=== PATIENT | male | born 1965 | race Caucasian/White ===

== ENCOUNTER 2017-04-27 17:09 | Emergency (ER) | payer BC ==
[2015-10-10 09:41] VITALS: BMI 29.6
[~2017-04-27 17:09] MED LIST: ATIVAN0.5 MG PO; CHERATUSSIN AC473 ML; HYDROCODONE-APA1 TAB PO; MOBIC7.5 MG PO; RESTORIL22.5 MG
[2017-04-27 17:39] LABS: BASOPHILS 0.2 % (0-2); EOSINOPHILS 0 % (0-7); HEMATOCRIT 46.8 % (42.0-54.0); HEMOGLOBIN 15.8 g/dL (13.5-17.5); IMMATURE GRANULOCYTES 0.5 % (0-5); LYMPHOCYTES 5.8 % (15-50); MCH 33.5 pg (26.0-34.0); MCHC 33.8 g/dL (31.0-37.0); MCV 99.4 fL (80.0-100.0); MEAN PLATELET VOLUME 10.4 fL (7.4-10.4); MONOCYTES 6.7 % (2-11); NEUTROPHILS 86.8 % (40-80); PLATELET COUNT 289 10x3/uL (130-400); RBC 4.71 10x6/uL (4.20-6.10); RDW 12.5 % (11.5-14.5); WBC 12.7 10x3/uL (4.8-10.8)
[2017-04-27 17:51] LABS: ALBUMIN 4.2 g/dL (3.4-5.0); ANION GAP 16.5 mmol/L (8-16); BILIRUBIN - TOTAL 0.8 mg/dL (0.2-1.3); CALCIUM 9.7 mg/dL (8.5-10.1); CARBON DIOXIDE 27.2 mmol/L (21.0-32.0); CREATININE - SERUM 1.3 mg/dL (0.6-1.3); POTASSIUM - SERUM 3.7 mmol/L (3.5-5.1); PROTEIN - SERUM 7.9 g/dL (6.4-8.2)
[2017-04-27 18:13] LABS: COLOR DK YELLOW (YELLOW)
[2017-04-27 18:14] LABS: APPEARANCE CLEAR (CLEAR); BILIRUBIN NEGATIVE (NEGATIVE); GLUCOSE NEGATIVE (NEGATIVE); KETONE LARGE mg/dL (NEGATIVE); NITRITE NEGATIVE (NEGATIVE); PROTEIN TRACE mg/dL (NEGATIVE); SPECIFIC GRAVITY 1.005 (1.005-1.020); UROBILINOGEN NORMAL (NORMAL)
[2017-04-27 20:06] LABS: AMYLASE - SERUM 46 U/L (25-115); LIPASE 143 U/L (73-393)
== END 2017-04-27 20:43 | disposition home or self-care (01) ==
LOC: D.ER 17:09
PROVIDERS: Emergency Medicine
DX: R10.9 Unspecified abdominal pain (principal); I10 Essential (primary) hypertension

== ENCOUNTER → 2017-06-28 08:06 | Outpatient (CLI) | payer BC ==
[2015-10-10 09:41] VITALS: BMI 29.6
== END | disposition home or self-care (01) ==
LOC: D.NM 06-26 08:00 → D.RAD 06-26 10:00
DX: R10.13 Epigastric pain (principal); R11.0 Nausea; R19.7 Diarrhea, unspecified

== ENCOUNTER 2017-11-25 06:49 | Day surgery (SDC) | payer OTHER ==
[~2017-11-25] VITALS: Ht 180.3 cm; Wt 117.9 kg
[2017-11-25] MEDS ORDERED: PHENERGAN25 M1 (07:33)
[2017-11-25] MEDS ORDERED: BENADRYL25 MG PO (07:34)
[2017-11-25 07:39] LABS: HEMATOCRIT 45.8 % (42.0-54.0); HEMOGLOBIN 15.5 g/dL (13.5-17.5); MCH 32.3 pg (26.0-34.0); MCHC 33.8 g/dL (31.0-37.0); MCV 95.4 fL (80.0-100.0); RBC 4.8 10x6/uL (4.20-6.10); RDW 14.1 % (11.5-14.5); WBC 9.8 10x3/uL (4.8-10.8)
[2017-11-25 07:41] VITALS: BP 110/76; Ht 180.3 cm; Wt 117.9 kg
[2017-11-25] MEDS ORDERED: HYDROCODON-ACE1 EAC7 PO (11:01)
[2017-11-25] MEDS ORDERED: PERCOCET 5-3251 TAB PO (13:09)
== END 2017-11-25 14:25 | disposition home or self-care (01) ==
LOC: D.OPS 06:49 → D.PAN 09:00 → D.OPS 09:00
PROVIDERS: Anesthesiology
DX: K81.1 Chronic cholecystitis (principal); R13.10 Dysphagia, unspecified; Z98.84 Bariatric surgery status; I10 Essential (primary) hypertension; G47.33 Obstructive sleep apnea (adult) (pediatric); F10.10 Alcohol abuse, uncomplicated; Z01.812 Encounter for preprocedural laboratory examination

== ENCOUNTER → 2020-11-30 08:19 | Outpatient (CLI) | payer MEDICARE ==
[2017-11-25 07:41] VITALS: BMI 36.3
[~2020-11-30 08:19] MED LIST changes: +BENADRYL25 MG PO; +HYDROCODON-ACE1 EAC7 PO; +PERCOCET 5-3251 TAB PO; +PHENERGAN25 M1
== END | disposition home or self-care (01) ==
LOC: D.HCCECHO 11-29 08:30 → D.HCCARDIO 08:19
PROVIDERS: ATTEND Internal Medicine Interventional Cardiology
DX: I20.9 Angina pectoris, unspecified (principal)

== ENCOUNTER 2020-12-14 06:51 | Day surgery (SDC) | payer MEDICARE ==
[~2020-12-14] VITALS: Ht 180.3 cm; Wt 130.9 kg
--- NOTE | ~2020-12-14 | HEMODYNAMI ---
PATIENT:ANNALISA KELLER MEDICAL RECORD: [id number] : 65 LOCATION:D.CAT ADMISSION DATE: 12/14/20 Generatedon:19:58 Patient name: ANNALISA KELLER Patient #: [id number] SSN: : 1965 Date of study: 12/14/2020 Page: Of Hemodynamic Procedure Report Patient Data Patient Demographics Procedure consent was obtained First Name: ANNALISA Gender: Male Last Name: KRISHNA : 1965 [facility] Initial: LUIS Age: 55 year(s) Patient #: [id number] Race: Unknown Additional ID: [id number] Contact details [address]: [address] [place] [address] State: [place] City: [place] Zip code: [address] Past Medical History Allergies Allergen Reaction Date Comments Reported Penicillins 12/14/2020 Admission Admission Data Admission Date: 12/14/2020 Admission Time: 6:51 Height (in.): 70 BSA: 2.4 (m2) Height (cm.): 177.8 BMI: 39.89 (kg/m2) Weight (lbs.): 278 Weight (kg.): 126.1 Current Diagnosis Diagnosis Description Stable angina Lab Results Lab Result Date: 12/14/2020 Lab Result Time: 0:01 Biochemistry Name Units Result Min Max BUN mg/dl 10 --(-*--)-- 7 18 Creatinine mg/dl 1 --(--*-)-- 0.6 1.3 Procedure Procedure Types Cath Procedure Diagnostic Procedure LHC LHC w/Coronaries Procedure Description Procedure Date Procedure Date: 12/14/2020 Procedure Start Time: 9:43 Procedure End Time: 9:55 Procedure Staff Name Function Nilesh Clemente MD Performing Physician Maldonado Frances RT Monitor Elizabeth Hassan RT Scrub Juan Henderson RN Nurse Procedure Data Cath Procedure Fluoroscopy Diagnostic fluoroscopy Total fluoroscopy Time: 1.9 time: 1.9 min min Diagnostic fluoroscopy Total fluoroscopy dose: 488 dose: 488 mGy mGy Contrast Material Contrast Material Type Amount (ml) Isovue 370 60 Entry Location Entry Primary Successful Side Size Upsize Upsize Entry Closure Succes sful Closure Location (Fr) 1 (Fr) 2 (Fr) Remarks Device Remarks Femoral Right 5 Fr Exoseal artery Estimated blood loss: 5 ml Diagnostic catheters Device Type Used For End Catheter Placement MULTIPACK JL 4.0 5Fr Left Coronary catheter Angiography DIAGNOSTIC JL 5 5Fr Left Coronary catheter ([id number]) Angiography MULTIPACK 3DRC 5Fr Right Coronary catheter Angiography MULTIPACK Pigtail 5 Fr LV Angiography catheter Procedure Complications No complications Procedure Medications Medication Administration Route Dosage 0.9% NaCl I.V. 100 ml/hr Oxygen 6 l/min Heparin Flush Bag added to field 2 bags (1000units/500ml NS) Lidocaine 2% added to field 20 Versed I.V. 1 mg Fentanyl I.V. 50 mcg Versed I.V. 1 mg Fentanyl I.V. 50 mcg Versed I.V. 1 mg Fentanyl I.V. 50 mcg Versed I.V. 1 mg Fentanyl I.V. 50 mcg Versed I.V. 1 mg Fentanyl I.V. 50 mcg Hemodynamics Rest BSA: 2.4 (m2) HGB: 15 (g/dl) O2 Consumption: Estimated: 288.73 (ml/min) O2 Consu mption indexed: Estimated:120.3 (ml/min/m) Heart Rate: 75 (bpm) Pressure Samples Time Site Value (mmHg) Purpose Heart Use Rate(bpm) 9:50 LV 138/12,5 Snapshot 70 9:50 LV 128/15,17 Snapshot 70 Gradients Valve Time Site Site Mean SEP/DFP Peak To Heart Use 1 2 (mmHg) (sec/min) Peak Rate (mmHg) (bpm) Aortic 9:51 LV AO 34 Snapshots Pre Cath Intra NCS Post Cath Vital Signs Time Heart Resp SPO2 etCO2 NIBP (mmHg) Rhythm Pain Sedation Rate (ipm) (%) (mmHg) Status Level (bpm) 8:52:18 73 16 0 157/101(115) NSR 0 (11) 10(A) , No pain 8:56:34 69 19 100 0 144/97(111) NSR 0 (11) 10(A) , No pain 9:00:50 73 23 100 0 137/92(108) NSR 0 (11) 10(A) , No pain 9:05:06 75 25 99 0 133/86(111) NSR 0 (11) 10(A) , No pain 9:09:18 74 14 99 0 135/92(108) NSR 0 (11) 10(A) , No pain 9:13:32 75 21 99 0 136/95(121) NSR 0 (11) 10(A) , No pain 9:17:46 76 18 99 0 138/95(112) NSR 0 (11) 10(A) , No pain 9:22:02 80 17 98 0 141/91(111) NSR 0 (11) 10(A) , No pain 9:26:14 75 8 99 0 148/97(114) NSR 0 (11) 10(A) , No pain 9:30:28 77 20 98 0 140/99(115) NSR 0 (11) 10(A) , No pain 9:34:38 76 5 99 0 144/94(110) NSR 0 (11) 10(A) , No pain 9:38:54 73 24 100 0 149/96(113) NSR 0 (11) 10(A) , No pain 9:43:12 75 22 97 0 145/98(112) NSR 0 (11) 10(A) , No pain 9:47:28 72 15 99 0 153/97(113) NSR 0 (11) 10(A) , No pain 9:51:42 75 17 99 0 150/99(116) NSR 0 (11) 10(A) , No pain 9:56:00 70 12 97 0 156/91(107) NSR 0 (11) 10(A) , No pain Medications Time Medication Route Dose Verified Delivered Reason Notes Effectiveness by by 8:54:02 Oxygen simple 6 Nilesh Juan used for pt states mask l/min [facility] post anesthesia care unit nurse more MD comfortable with mask 8:54:03 0.9% NaCl I.V. 100 Nilesh Juan used for ml/hr [facility] post anesthesia care unit nurse 8:54:29 Heparin Flush added 2 Nilesh Galloway used for Bag to bags [facility] procedure (1000units/500ml field MD WEBB NS) 8:55:21 Lidocaine 2% added 20ml Nilesh Galloway for local to vial [facility] anesthetic field MD WEBB 9:36:14 Versed I.V. 1 mg Nilesh Juan for Bryn Santiago RN sedation 9:36:24 Fentanyl I.V. 50 Nilesh Juan for [facility] Henderson RN sedation 9:38:32 Versed I.V. 1 mg Nilesh Juan for BrynMichel Henderson RN sedation 9:38:35 Fentanyl I.V. 50 Nilesh Juan for [facility] BrynMichel Henderson RN sedation 9:40:18 Versed I.V. 1 mg Nilesh Juan for BrynMichel Henderson RN sedation 9:40:23 Fentanyl I.V. 50 Nilesh Juan for [facility] BrynMichel Henderson RN sedation 9:42:38 Versed I.V. 1 mg Nilesh Juan for BrynMichel Henderson RN sedation 9:42:53 Fentanyl I.V. 50 Nilesh Juan for [facility] BrynMichel Henderson RN sedation 9:44:16 Versed I.V. 1 mg Nilesh Juan for Bryn Santiago RN sedation 9:44:21 Fentanyl I.V. 50 [facility] Procedure Log Time Note 8:39:56 Informed consent obtained and on chart 8:40:16 Juan Henderson RN sent for patient. Start room use. 8:48:13 Patient Height : 70 inches 8:48:16 Patient Weight : 278 lbs 8:48:29 Current Diagnosis : Stable angina 8:50:29 Lab Result : Hemoglobin 15 g/dl 8:50:47 Procedure Status Elective Heart Cath (OP). 8:50:49 Time tracking: Regular hours (M-F 7:00 - 5:00) 8:50:53 Plan of Care:Hemodynamics will remain stable., Cardiac rhythm will remain stable., Comfort level will be maintained., Respiratory function will remain adequate., Patient/ family verbilizes understanding of procedure., Procedure tolerated without complication., Recovers from procedure without complications.. 8:50:58 Patient received from Pre/Post Procedure Room to CCL 1 Alert and oriented. Tansferred to table in Supine position. 8:51:00 Warm blankets applied, and derian hugger turned on for patient comfort. 8:51:00 Correct patient and procedure confirmed by team. 8:51:01 ECG and BP/O2 sat monitors applied to patient. 8:51:02 Vital chart was started 8:54:02 Oxygen 6 l/min simple mask was administered by Juan Henderson RN; used for procedure; pt states more comfortable with mask Verbal order read back and verified. 8:54:03 0.9% NaCl 100 ml/hr I.V. was administered by Juan Henderson RN; used for procedure; Verbal order read back and verified. 8:54:28 Baseline sample Acquired. 8:54:29 Heparin Flush Bag (1000units/500ml NS) 2 bags added to field was administered by Nilesh Clemente MD; used for procedure; Verbal order read back and verified. 8:54:33 Rhythm: sinus rhythm 8:55:21 Lidocaine 2% 20ml vial added to field was administered by Nilesh Clemente MD; for local anesthetic; Verbal order read back and verified. 8:55:54 Use device set Femoral Dx 8:55:57 ACIST Syringe (08184) opened to sterile field. 8:55:57 Bag Decanter (2002S) opened to sterile field. 8:55:59 Medline Cath Pack ([id number]) opened to sterile field. 8:56:00 ACIST Hand Control (85962) opened to sterile field. 8:56:01 ACIST Manifold (76066) opened to sterile field. 8:56:02 DIAGNOSTIC Multipack 5Fr catheter set ([id number]) opened to sterile field. 8:56:03 Tegaderm 4 x 4 (1626W) opened to sterile field. 8:56:05 SHEATH 5FR Eagle ([id number]) opened to sterile field. 8:56:06 EMERALD Guide Wire (218-651) opened to sterile field. 8:56:12 Full Disclosure recording started 8:56:21 H&P Date Dictated: 12/14/2020 H&P Addendum completed by physician on day of procedure. (MUST COMPLETE FOR ALL OUTPATIENTS). 8:56:23 Pre-procedure instructions explained to patient. 8:56:24 Pre-op teaching completed and patient verbalized understanding. 8:56:34 Family unavailable. 8:56:36 Patient NPO since Midnight. 8:56:44 Patient allergic to Penicillins 8:56:51 Is the patient allergic to Iodine/contrast media? No. 8:56:53 Is patient on blood thinner?No 8:56:58 Patient diabetic? No. 8:57:01 ----Pre-sedation anethsthesia assessment.---- 8:57:04 Previous problem with sedation/anesthesia? No ? 8:57:05 Snore? Yes 8:57:07 Sleep apnea? Yes 8:57:10 Deviated septum? No 8:57:11 Opens mouth fully? Yes 8:57:13 Sticks out tongue? Yes 8:57:15 Airway obstruction? No ? 8:57:17 Dentures? No ? 8:57:21 Pre procedure: right dorsailis pedis pulse 1+ Palpable, but thready & weak; easily obliterated 8:57:26 Patient pain scale 0/10 ?. 8:57:32 IV patent on arrival in left antecubital with 0.9% NaCl at [facility]. 8:57:38 Lab results completed and on chart. 8:57:46 Right groin area was prepped with chlora-prep and draped in sterile fashion 8:57:47 Alarms reviewed by R. N. 8:57:48 Sharps counted by scrub and verified by R.N. 8:58:43 Lab Result : Creatinine 1 mg/dl 8:58:43 Lab Result : BUN 10 mg/dl 9:30:31 Zero performed for pressure channel P1 9:35:32 Physician arrived 9:35:34 --------ALL STOP TIME OUT------ 9:35:34 Final Timeout: patient, procedure, and site verified with staff and physician. All members of the team are in agreement. 9:35:36 Right groin site verified by team. 9:35:42 Fire Safety Assessment: A--An alcohol-based skin anteseptic being used preoperatively., B--The operative or invasive procedure is being performed above the xiphoid process or in the oropharynx., C--Open oxygen or nitrous oxide is being used., D--An ESU, laser, or fiber-optic light is being used., E--There are other possible contributors. 9:35:46 Physical assessment completed. ASA score P 3 - A patient with severe systemic disease as per Nilesh Clemente MD. 9:35:51 Physical assessment completed. ASA score P 2 - A patient with mild systemic disease as per Nilesh Clemente MD. 9:35:57 2) 60-89 Mildly reduced kidney function, and other findings (as for stage 1) point to kidney disease. 9:36:02 Maximum allowable contrast dose (3.7 X eGFR X 0.75)227 ml. 9:36:06 Sedation plan: IV Moderate Sedation Medication:Versed, Fentanyl 9:36:14 Versed 1 mg I.V. was administered by Juan Henderson RN; for sedation; Verbal order read back and verified. 9:36:24 Fentanyl 50 mcg I.V. was administered by Juan Henderson RN; for sedation; Verbal order read back and verified. 9:38:32 Versed 1 mg I.V. was administered by Juan Henderson RN; for sedation; Verbal order read back and verified. 9:38:35 Fentanyl 50 mcg I.V. was administered by Juan Henderson RN; for sedation; Verbal order read back and verified. 9:40:18 Versed 1 mg I.V. was administered by Juan Henderson RN; for sedation; Verbal order read back and verified. 9:40:23 Fentanyl 50 mcg I.V. was administered by Juan Henderson RN; for sedation; Verbal order read back and verified. 9:42:38 Versed 1 mg I.V. was administered by Juan Henderson RN; for sedation; Verbal order read back and verified. 9:42:53 Fentanyl 50 mcg I.V. was administered by Juan Henderson RN; for sedation; Verbal order read back and verified. 9:43:14 Procedure started. 9:43:25 Local anesthetic to right femoral artery with Lidocaine 2% by Nilesh Clemente MD.INITIAL ACCESS ONLY 9:43:37 A 5 Fr sheath was inserted into the Right Femoral artery 9:43:47 A MULTIPACK JL 4.0 5Fr catheter was advanced over the wire and used for Left Coronary Angiography. 9:44:16 Versed 1 mg I.V. was administered by Juan Henderson RN; for sedation; Verbal order read back and verified. 9:44:21 Fentanyl 50 mcg I.V. was administered by Juan Henderson RN; for sedation; Verbal order read back and verified. 9:45:36 Catheter removed. 9:45:50 A DIAGNOSTIC JL 5 5Fr catheter ([id number]) was advanced over the wire and used for Left Coronary Angiography. 9:47:03 LCA angiography performed. 9:47:56 Catheter removed. 9:48:09 A MULTIPACK 3DRC 5Fr catheter was advanced over the wire and used for Right Coronary Angiography. 9:48:16 RCA angiography performed. 9:48:59 Catheter removed. 9:49:09 A MULTIPACK Pigtail 5 Fr catheter was advanced over the wire and used for LV Angiography. 9:49:14 LV angiography performed. 9:49:18 LV gram done using EDUARDO 9:49:20 LV hemodynamics recorded. 9:49:23 Injector settings: Ml/sec: 10, Volume: 20, 9:51:05 EF : 65 % 9:51:08 Catheter removed. 9:51:20 Sheath removed intact; hemostasis achieved with Exoseal to the Right Femoral artery. 9:51:26 Procedure ended.(Physican Out) 9:52:10 Fluoroscopy time 01.90 minutes. 9:52:17 Fluoroscopy dose: 488 mGy 9:52:17 Flurop Dose total: 488 9:52:26 Dose Area Product 04774 mGy/cm. 9:52:32 Contrast amount:Isovue 370 60ml. 9:52:35 Maximum allowable dose exceeded? No. 9:52:40 Sharps counted by scrub and verified by R.N. 9:52:44 Insertion/operative site no bleeding no hematoma. 9:52:48 Post-op/insertion site Right Femoral artery dressed using a 4 x 4 and Tegaderm. 9:52:52 Post right femoral artery:stable 9:53:31 Post Procedure Pulses reassessed and unchanged 9:53:35 Post procedure: right dorsailis pedis pulse 1+ Palpable, but thready & weak; easily obliterated. 9:53:39 Post-procedure physical assessment completed. ASA score P 2 - A patient with mild systemic disease as per Nilesh Clemente MD. 9:53:43 Post procedure rhythm: sinus rhythm 9:53:52 Estimated blood loss: 5 ml 9:53:54 Post procedure instruction explained to patient.Patient verbalizes understanding. 9:54:01 Procedure and supply charges have been captured, reviewed, submitted and are correct. 9:54:07 Procedure Complication : No complications 9:55:06 Vital chart was stopped 9:55:19 [facility] Findings: mild to moderate CAD (<70%) 9:55:24 Operative report dictated upon procedure completion. 9:55:25 See physician's report for complete and final results. 9:55:27 Report given to Pre/Post Procedure Room. 9:55:31 Patient transfered to Pre/Post Procedure Room with Stretcher. 9:55:35 Procedure ended. 9:55:35 Full Disclosure recording stopped 9:55:39 End room use (Document Last) 9:56:05 EXOSEAL 5Fr (EX500) opened to sterile field. 9:56:39 MICROPUNCTURE 4FR Cook ([id number]) opened to sterile field. Device Usage Item Name Manufacture Quantity Catalog Hospital Part Current Minimal Lot# / Number Charge Number Stock Stock Serial# Code ACIST Syringe Acist 1 62598 076805 187646 598424 20 (10788) Medical Systems Inc Bag Decanter Microtek 1 219439 69131 051163 5 () Medical Inc. Medline Cath Medline 1 [id number] 093866 95636 942801 5 Pack ([id number]) ACIST Hand Acist 1 97989 450795 186657 180533 5 Control Medical (26590) Systems Inc ACIST Acist 1 69369 017600 872833 928189 5 Manifold Medical (40008) Systems Inc DIAGNOSTIC Cardinal 1 [id number] 001637 48032 595674 30 Multipack 5Fr Health catheter set (BW2189) Tegaderm 4 x 3M 1 1626W 649998 046713 124745 5 4 (1626W) SHEATH 5FR Terumo 1 LEQ673 773832 091720 967329 5 Eagle (KQQ720) EMERALD Guide Cardinal 1 502-455 247104 798481 884396 5 Wire Health (502-455) MULTIPACK JL Cardinal 1 269841 5 4.0 5Fr Health catheter DIAGNOSTIC JL Cardinal 1 [id number] 946528 244355 978977 5 5 5Fr Health catheter ([id number]) MULTIPACK Cardinal 1 756210 5 3DRC 5Fr Health catheter MULTIPACK Cardinal 1 677705 5 Pigtail 5 Fr Health catheter EXOSEAL 5Fr Cardinal 1 EX500 955777 334390 708090 10 (EX500) Health MICROPUNCTURE [employer] 1 [id number] 208214 256696 934377 5 4FR Cook ([id number]) Signature Audit [place] Stage Time Signature Unsigned Intra-Procedure 12/14/2020 Madlonado Frances RT(R) 9:56:39 AM Intra-Procedure 12/14/2020 Juan Henderson RN 9:57:39 AM Intra-Procedure 12/14/2020 Nilesh Eldridge 9:58:09 AM Michel WEBB [facility] [address] [place] [address]
[2020-12-14] MEDS ORDERED: MELATONIN10 M1 PO (08:02)
[2020-12-14 08:18] VITALS: BP 131/83; Ht 180.3 cm; Wt 130.9 kg
[2020-12-14 08:31] LABS: BASOPHILS 1.2 % (0-2); EOSINOPHILS 4.9 % (0-7); HEMATOCRIT 44.1 % (42.0-54.0); LYMPHOCYTES 29.4 % (15-50); MCH 33.6 pg (26.0-34.0); MCHC 34.1 g/dL (31.0-37.0); MCV 98.6 fL (80.0-100.0); MEAN PLATELET VOLUME 8.2 fL (7.4-10.4); MONOCYTES 10.3 % (2-11); NEUTROPHILS 54.2 % (40-80); PLATELET COUNT 261 10x3/uL (130-400); RBC 4.47 10x6/uL (4.20-6.10); RDW 13.9 % (11.5-14.5); WBC 7.5 10x3/uL (4.8-10.8)
[2020-12-14 08:54] LABS: ALBUMIN 3.6 g/dL (3.4-5.0); ALKALINE PHOSPHATASE 78 U/L (30-120); ALT (SGPT) 31 U/L (10-68); BILIRUBIN - TOTAL 0.82 mg/dL (0.2-1.3); CALC OSMOLALITY 277 mosm/kg (275-300); CALCIUM 8.6 mg/dL (8.5-10.1); CARBON DIOXIDE 22.8 mmol/L (21.0-32.0); CHLORIDE - SERUM 108 mmol/L (98-107); CHOL - HDL RATIO 3.3 ratio (2.3-4.9); CHOLESTEROL, TOTAL 190 mg/dL (0-200); GLUCOSE 104 mg/dL (74-106); HDL CHOLESTEROL 57 mg/dL (32-96); LDL CHOLESTEROL 107 mg/dL (0-100); LDL-HDL RATIO 1.9 ratio (1.5-3.5); POTASSIUM - SERUM 4.9 mmol/L (3.5-5.1); PROTEIN - SERUM 6.9 g/dL (6.4-8.2); SODIUM 140 mmol/L (136-145); TRIGLYCERIDE 134 mg/dL (30-200); UREA NITROGEN 10 mg/dL (7-18); eGFR NON AFRICAN AMERICAN 82 mL/min (90-120)
--- NOTE | 2020-12-14 10:05 | NUR ---
PT ARRIVED BY STRETCHER. PLACED ON MONITORS. ASSESSMENT COMPLETED. VSS AT THIS TIME. CALL LIGHT WITHIN REACH. PT GIVEN CELL PHONE AND GLASSES TO PUT BACK ON PER HIS REQUEST.
--- NOTE | 2020-12-14 10:20 | NUR ---
RIGHT GROIN DRESSING C/D/I. NO S/S OF HEMATOMA NOTED. VSS AT THIS TIME. CALL LIGHT WITHIN REACH.
--- NOTE | 2020-12-14 10:50 | NUR ---
RIGHT GROIN DRESSING C/D/I. NO S/S OF HEMATOMA NOTED. VSS AT THIS TIME. CALL LIGHT WITHIN REACH. DENIES NAUSEA. TOLERATING SIPS OF WATER.
--- NOTE | 2020-12-14 11:00 | NUR ---
RIGHT GROIN DRESSING C/D/I. NO S/S OF HEMATOMA NOTED. CALL LIGHT WITHIN REACH. HEAD OF BED INC TO 3O DEGREES. TOLERATED WELL. SET UP WITH SANDWICH TRAY AND DRINK. DENIES NAUSEA/PAIN. NO NEEDS AT THIS TIME.
--- NOTE | 2020-12-14 11:27 | NUR ---
RIGHT GROIN DRESSING C/D/I. NO S/S OF HEMATOMA NOTED. RIGHT PEDAL PULSE PALPABLE. NO NEEDS AT THIS TIME.
--- NOTE | 2020-12-14 11:35 | NUR ---
PIV D/C'D WITH CATH TIP INTACT. TOLERATED WELL. DISCUSSED DISCHARGE INSTRUCTIONS WITH PT. HE VOICED UNDERSTANDING. RIGHT GROIN DRESSING C/D/I. NO S/S OF HEMATOMA NOTED. PT INSTRUCTED TO GET UP AND DRESSED AT THIS TIME. NO ASSISTANCE NEEDED. CALL LIGHT LEFT WITHIN REACH.
--- NOTE | 2020-12-14 11:47 | NUR ---
PT AMBULATED TO RESTROOM. VOIDED WITHOUT DIFFICULTY. STEADY GAIT NOTED.
--- NOTE | 2020-12-14 12:10 | NUR ---
PT'S RIDE HERE. RIGHT GROIN DRESSING C/D/I. NO S/S OF HEMATOMA NOTED. PT TAKEN OUT TO VEHICLE BY WHEELCHAIR. NO S/S OF DISTRESS NOTED. ALL BELONGINGS AND PAPERWORK IN HAND.
--- NOTE | 2020-12-14 14:28 | OP ---
PATIENT NAME: ANNALISA KELLER MEDICAL RECORD: [id number] :[birth year] LOCATION:D.CAT ADMISSION DATE: SURGEON: REINA GERBER MD DATE OF OPERATION: 12/14/2020 PROCEDURE: Left heart catheterization, selective coronary angiography, right femoral artery approach. CATHETERS: A 5-Setswana sheath, 5/4 left and right Kenroy, 5/4 pig. The procedure was well tolerated. The patient was returned to the cortes. Sheath removed. ExoSeal device was placed. FINDINGS: Left ventriculography in 30-degree EDUARDO view: Normal wall motion, normal systolic function. CORONARY ANATOMY: Left main: Left main is free of disease. LAD: Free of disease in the diagonal system. Circumflex: Free of disease in the marginal system. Right coronary artery: Dominant artery, free of disease. IMPRESSION: Normal left ventricular systolic function. Normal coronary anatomy. TRANSINT:[id number] Voice Confirmation ID: [id number] DOCUMENT ID: [id number] REINA GERBER MD at 1428 CC: [id number] DICTATION DATE: 12/14/20 0958 POWDER CORE TESTER: 12/14/20 1220 [facility] 12/14/20 [facility] [address] [facility] [place] [address]
== END 2020-12-14 12:10 | disposition home or self-care (01) ==
LOC: D.CATH 06:51
PROVIDERS: ATTEND Internal Medicine Interventional Cardiology
DX: I20.9 Angina pectoris, unspecified (principal); R94.39 Abnormal result of other cardiovascular function study; I10 Essential (primary) hypertension; Z01.810 Encounter for preprocedural cardiovascular examination; Z82.49 Family history of ischemic heart disease and other diseases of the circulatory system; R01.1 Cardiac murmur, unspecified

== ENCOUNTER → 2021-01-12 16:05 | Outpatient (CLI) | payer MEDICARE ==
[2020-12-14 08:18] VITALS: BMI 40.2
[~2021-01-12 16:05] MED LIST changes: +MELATONIN10 M1 PO
[2021-01-12 16:17] LABS: HEMATOCRIT 31.5 % (42.0-54.0); HEMOGLOBIN 10.4 g/dL (13.5-17.5)
== END | disposition home or self-care (01) ==
LOC: D.LABREF 16:05
PROVIDERS: ATTEND Surgery
DX: Z48.89 Encounter for other specified surgical aftercare (principal); Z98.84 Bariatric surgery status